=== PATIENT | female | born 1990 | race Asian ===

== ENCOUNTER 2023-10-03 08:58 | Day surgery (SDC) | payer BC ==
[2023-10-01 12:06] LABS: BASOPHILS # (AUTO) 0.1 X10'3 (0-0.2); BASOPHILS % (AUTO) 1.5 % (0-1); EOSINOPHILS # (AUTO) 0.1 X10'3 (0-0.9); LYMPHOCYTES # (AUTO) 1.9 X10'3 (1.1-4.8); LYMPHOCYTES % (AUTO) 33.5 % (21-51); MEAN CORPUSCULAR HEMOGLOBIN 29.4 PG (27.0-31.0); MEAN CORPUSCULAR HGB CONC 33.3 g/dL (33.0-36.5); MEAN CORPUSCULAR VOLUME 88.3 FL (78-98); MEAN PLATELET VOLUME 7.1 FL (7.4-10.4); MONOCYTES # (AUTO) 0.4 X10'3 (0-0.9); NEUTROPHILS # (AUTO) 3.3 X10'3 (1.8-7.7); PRE OP HEMATOCRIT 43.4 % (35.0-45.0); PRE OP HEMOGLOBIN 14.4 g/dL (12.0-16.0); PRE OP PLATELET COUNT 342 X10'3 (140-440); PRE OP WHITE BLOOD COUNT 5.8 10'3 (4.8-10.8); RED BLOOD COUNT 4.92 X10'6 (4.20-5.60); RED CELL DISTRIBUTION WIDTH 13.7 % (11.5-14.5)
[2023-10-01 12:56] LABS: ALBUMIN 4.2 G/DL (3.4-5.0); ALBUMIN/GLOBULIN RATIO 1.1 (1.1-1.5); ALKALINE PHOSPHATASE 32 IU/L (46-116); BLOOD UREA NITROGEN 12 MG/DL (7-18); BUN/CREATININE RATIO 16.7 (10.0-20.0); CHLORIDE 104 MMOL/L (99-107); CREATININE 0.72 MG/DL (0.40-0.90); PRE OP ALT 20 U/L (30-65); PRE OP ANION GAP 7 (8-16); PRE OP AST 12 U/L (10-37); PRE OP BILIRUB, TOTAL 0.5 MG/DL (0.0-1.0); PRE OP GLUCOSE 93 MG/DL (70-104); PRE OP POTASSIUM 3.6 MMOL/L (3.4-5.1); PRE OP SODIUM 138 MMOL/L (135-145); TOTAL CARBON DIOXIDE 27.4 MMOL/L (24-32); TOTAL PROTEIN 8.1 G/DL (6.4-8.2); eGFR > 90 ML/MIN
[2023-10-01 13:04] LABS: HCG SERUM QL NEGATIVE
[~2023-10-03] VITALS: Ht 152.4 cm; Wt 56.7 kg
[2023-10-03] VITALS (11 sets, daily range): BP systolic 114–126; BP diastolic 53–82; PULSE 60–97; RESP 12–19; TEMP 97.6; O2SAT 100
[~2023-10-03 08:58] MED LIST: NO HOME MEDS; ceFAZolin/D5W- 1GM premix 50 ML IV ONE; famotidine 20mg tablet PO ONE; ringers solution, lacted 1,000 ML IV SCH
[2023-10-03] MEDS ORDERED: LIDOcaine 1% 30ml preserv. free vial ONE (11:21)
[2023-10-03] MEDS ORDERED: BUPIVAcaine 2.5mg/ml inj 50ml vial (contains preservative) ONE (11:21)
[2023-10-03] MEDS ORDERED: LIDOcaine 2% (20mg/ml) 5ml vial ONE (11:31)
[2023-10-03] MEDS ORDERED: sevoflurane 250ml liquid IH ONE (11:31)
[2023-10-03] MEDS ORDERED: ondansetron/PF 4mg/2ml inj IV PRN (11:35)
[2023-10-03] MEDS ORDERED: ringers solution, lacted 1,000 ML IV SCH (11:35)
[2023-10-03] MEDS ORDERED: morphine 4 MG/ML inj SYRINge IV PRN (11:35)
[2023-10-03] MEDS ORDERED: fentaNYL/PF 50MCG/1 ML 2ML syringe ONE (11:35)
[2023-10-03] MEDS ORDERED: morphine 2 MG/ML inj. syringe IV PRN (11:35)
[2023-10-03] MEDS ORDERED: meperidine/PF 25mg/ml syringe IV PRN ×3 (11:35)
[2023-10-03] MEDS ORDERED: midazolam 1 mg/ML 2ml injection ONE (11:35)
[2023-10-03] MEDS ORDERED: propofol inj 20 ML IV ONE (11:35)
[2023-10-03] MEDS ORDERED: proCHLORperazine 10 MG/2 ml inj IV PRN (11:35)
[2023-10-03] MEDS ORDERED: BUPIVAcaine 0.25% w/Epi /PF 30ml vial IJ ONE (12:10)
[2023-10-03] MEDS ORDERED: dexamethasone sod phosphate 4mg/ml inj. ONE (12:41)
[2023-10-03] MEDS ORDERED: ondansetron/PF 4mg/2ml inj ONE (12:42)
== END 2023-10-03 14:33 | disposition home or self-care (01) ==
LOC: PAS 08:58
PROVIDERS: ATTEND Surgery
DX: R92.8 Other abnormal and inconclusive findings on diagnostic imaging of breast (principal); D24.1 Benign neoplasm of right breast; Z98.890 Other specified postprocedural states; Z79.899 Other long term (current) drug therapy
CPT/HCPCS: 19125; 36415; 80053; 82948; 84703; 85025; J0690; J1100; J2250; J2405; J2704; J3010; J3490; J7030; J7120; S0020; Z7506; Z7508; Z7512; A4215; A4618; A6449; A7000